=== PATIENT | female | born 2000 | race Two or more races ===

== ENCOUNTER 2025-01-26 08:54 | Inpatient (IN) | payer OTHER ==
[~2025-01-26] VITALS: Ht 157.5 cm; Wt 70.3 kg
[2025-01-26] MEDS: SODIUM CHLORIDE 0.9% 1,000 ML IV ONE ×3 (09:15→13:14)
--- NOTE | 2025-01-26 09:18 | ED.PDOC ---
History of Present Illness HPI Comments 24-year-old female presents with a chief complaint of flu-like symptoms. Patient is presenting with symptoms of fever, cough, nausea, and vomiting. Patient states that her temperature at home was "200" and took Ibuprofen for it. Patient is afebrile in triage. Patient endorses nausea, but has no active vomiting at this time. Patient denies abdominal pain, chest pain, or SOB. 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 Chief Complaint: Flu like Time Seen by MD: 09:09 Reviewed Notes: Medications, Allergies Allergies: Coded Allergies: NO KNOWN ALLERGIES (Unverified , 01/26/25) Information Source: Patient Mode of Arrival: Ambulatory Severity: Moderate Timing: Hours Duration: Since onset Prehospital treatment: None Past Medical History PAST MEDICAL HISTORY: Denies Surgical History: Denies all surgeries DEMAND MANAGER History: Denies all DEMAND MANAGER Hx Family History Family History: Reviewed,noncontributory to illness Social History Smoker: Non-Smoker Alcohol: Denies ETOH Use Drugs: Denies Drug Use Lives In: Home Constitutional: reports: fever; denies: chills, diaphoresis, fatigue, malaise, sweats, weakness, others EENTM: denies: blurred vision, double vision, ear bleeding, ear discharge, ear drainage, ear pain, ear ringing, eye pain, eye redness, hearing loss, mouth pain, mouth swelling, nasal discharge, nose bleeding, nose congestion, nose pain, photophobia, tearing, throat pain, throat swelling, voice changes, others Respiratory: reports: cough; denies: hemoptysis, orthopnea, SOB at rest, shortness of breath, SOB with excertion, stridor, wheezing, others Cardiovascular: denies: chest pain, dizzy spells, diaphoresis, Dyspnea on exertion, edema, irregular heart beat, left arm pain, lightheadedness, palpitations, PND, syncope, others Gastrointestinal: reports: nausea, vomiting; denies: abdomen distended, abdominal pain, blood streaked bowels, constipated, diarrhea, dysphagia, difficulty swallowing, hematemesis, melena, poor appetite, poor fluid intake, rectal bleeding, rectal pain, others Genitourinary: denies: abnormal vagina bleeding, burning, dyspareunia, dysuria, flank pain, frequency, hematuria, incontinence, pain, , vagina discharge, urgency, others Neurological: denies: dizziness, fainting, headache, left sided numbness, left sided weakness, numbness, paresthesia, pre-existing deficit, right sided numbness, right sided weakness, seizure, speech problems, tingling, tremors, weakness, others Musculoskeletal: denies: back pain, gout, joint pain, joint swelling, muscle pain, muscle stiffness, neck pain, others Integumetry: denies: bruises, change in color, change in hair/nails, dryness, laceration, lesions, lumps, rash, wounds, others Allergic/Immunocompromised: denies: Difficulty Healing, Frequent Infections, Hives, Itching, others Hematologic/Lymphatic: denies: anemia, blood clots, easy bleeding, easy bruising, swollen glands, others Endocrine: denies: excessive hunger, excessive sweating, excessive thirst, excessive urination, flushing, intolerance to cold, intolerance to heat, unexplained weight gain, unexplained weight loss, others Psychiatric: denies: anxiety, bipolar disorder, depression, hopeless, panic disorder, schizophrenia, sleepless, suicidal, others All Other Systems: Reviewed and Negative Physical Exam General Appearance: No Apparent Distress, Normal HEENT: Normal ENT Inspection, Pharynx Normal, TMs Normal Neck: Full Range of Motion, Non-Tender, Normal, Normal Inspection Respiratory: Chest Non-Tender, Lungs Clear, No Accessory Muscle Use, No Respiratory Distress, Normal Breath Sounds Cardiovascular: No Edema, No JVD, No Murmur, No Gallop, Normal Peripheral Pulses, Regular Rate/Rhythm Breast Exam: Deferred Gastrointestinal: No Organomegaly, Non Tender, No Pulsatile Mass, Normal Bowel Sounds, Soft Genitalia: Deferred Pelvic: Deferred Rectal: Deferred Extremities: No calf tenderness, Normal capillary refill, Normal inspection, Normal range of motion, Non-tender, No pedal edema Musculoskeletal : Apperance: Normal Neurologic: Alert, natural gas engineer II-XII nml as Tested, No Motor Deficits, Normal Affect, Normal Mood, No Sensory Deficits Cerebellar Function: Normal Reflexes: Normal Skin: Dry, Normal Color, Warm Lymphatic: No Adenopathy Was a procedure done? Was a procedure done?: No EKG EKG : Pulse Rate (adult): 126 [place]: RAD Cardiac Rhythm: ST Block: None Hypertrophy: LAE ST: Normal Differential Dx Considerations may include: Acute cystitis, viral syndrome, dehydration, electrolyte abnormalities X-Ray, Labs, Meds, VS Vital Signs Date Time Temp Pulse Resp B/P (MAP) Pulse Ox O2 Delivery O2 Flow Rate FiO2 01/26/25 12:44 127 14 100/45 (63) 97 01/26/25 10:33 98.8 130 18 112/55 (74) 98 98.8 01/26/25 10:31 98.8 01/26/25 09:56 99.2 01/26/25 09:29 99.2 130 20 103/62 (76) 98 99.2 01/26/25 09:29 130 20 98 Room Air* 0 21 01/26/25 09:18 126 01/26/25 09:12 126 01/26/25 09:00 99.2 143 16 Lab Test 01/26/25 10:31 01/26/25 09:37 01/26/25 09:20 01/26/25 09:05 Range/Units White Blood Count 21.4 H 4.4-10.8 10^3/uL Red Blood Count 4.15 4.0-5.20 10^6/uL Hemoglobin 10.7 L 12.2-16.2 g/dL Hematocrit 33.0 L 36.0-46.0 % Mean Corpuscular Volume 79.5 L 80.0-100.0 fL Mean Corpuscular Hemoglobin 25.8 L 28.0-32.0 pg Mean Corpuscular Hemoglobin Concent 32.5 32.0-36.0 g/dL Red Cell Distribution Width 15.8 H 11.8-14.3 % Platelet Count 336 140-450 10^3/uL Mean Platelet Volume 6.1 L 6.9-10.8 fL Neutrophils (%) (Auto) 82.4 H 37.0-80.0 % Lymphocytes (%) (Auto) 7.0 L 10.0-50.0 % Monocytes (%) (Auto) 10.3 0.0-12.0 % Eosinophils (%) (Auto) 0.0 0.0-7.0 % Basophils (%) (Auto) 0.3 0.0-2.0 % Neutrophils # (Auto) 17.6 H 1.6-8.6 10 ^3/uL Lymphocytes # (Auto) 1.5 0.4-5.4 10 ^3/uL Monocytes # (Auto) 2.2 H 0-1.3 10 ^3/uL Eosinophils # (Auto) 0 0-0.8 10 ^3/uL Basophils # (Auto) 0.1 0-0.2 10 ^3/uL Nucleated Red Blood Cells 0.0 % Sodium Level 134 L 136-145 mmol/L Potassium Level 3.9 3.5-5.1 mmol/L Chloride Level 105 98-107 mmol/L Carbon Dioxide Level 20 20-31 mmol/L Anion Gap 9 5-15 Blood Urea Nitrogen 7 L 9-23 mg/dL Creatinine 0.72 0.550-1.02 mg/dL Glomerular Filtration Rate Calc 121 >90 mL/min BUN/Creatinine Ratio 9.7 L 10.0-20.0 Serum Glucose 126 H 74-106 mg/dL Calcium Level 9.6 8.7-10.4 mg/dL Influenza Type A Antigen Negative Negative Influenza Type B Antigen Negative Negative SARS-CoV-2 Antigen (Rapid) Negative NEGATIVE Urine Color Yellow Yellow Urine Clarity Hazy H Clear Urine pH 6.0 5.0-9.0 Urine Specific [place] 1.027 1.001-1.035 Urine Protein 1+ H Negative Urine Ketones 1+ H Negative Urine Blood 1+ H Negative /uL Urine Nitrite Negative Negative Urine Bilirubin Negative Negative Urine Urobilinogen Normal Negative mg/dL Urine Leukocyte Esterase 1+ Negative /uL Urine RBC 3 0 - 4 /hpf Urine Microscopic WBC 27 H 0-5 /HPF Urine Squamous Epithelial Cells Few <5 /hpf Urine Bacteria Few H None Seen /hpf Urine Mucus Few None Seen Urine Glucose Normal Normal mg/dL Urine Test Negative Negative Current Medications Medications (Trade) Dose Ordered Sig/Robyn Route Start Time Stop Time Status Last Admin Sodium Chloride 1,000 ml @ 1,000 mls/hr Q1H ONCE IV 01/26/25 09:15 01/26/25 10:14 DC 01/26/25 09:15 Ondansetron HCl (Zofran) 4 mg ONCE ONCE IV 01/26/25 09:15 01/26/25 09:16 DC 01/26/25 09:55 Acetaminophen (Tylenol Tablet) 650 mg ONCE ONCE PO 01/26/25 09:15 01/26/25 09:16 DC 01/26/25 09:56 Famotidine (Pepcid Injection) 20 mg ONCE ONCE IV 01/26/25 09:15 01/26/25 09:16 DC 01/26/25 09:55 Sodium Chloride 1,000 ml @ 1,000 mls/hr Q1H ONCE IV 01/26/25 11:30 01/26/25 12:29 DC 01/26/25 11:33 Cefepime HCl 50 ml @ 12.5 mls/hr ONCE ONCE IV 01/26/25 11:30 01/26/25 15:29 01/26/25 11:39 Time of 1ST Reevaluation: 09:39 Reevaluation 1ST: Unchanged Patient Education/Counseling: Diagnosis, Treatment, Prognosis Family Education/Counseling: No Family Present Departure 1 Departure Time of Disposition: 12:53 (Patient with sepsis secondary urinary tract infection. Empirically covering patient with fluids antibiotics we will admit patient for further workup) Impression: Primary Impression: Sepsis Qualified Codes: A41.9 - Sepsis, unspecified organism Additional Impression: Pyelonephritis Disposition: ADMITTED INPATIENT Admit to: Med Surg Condition: Serious Critical Care Note Critical Care Time?: Yes Critical care comment: Sepsis Authorized and Performed by: Isatu Cervantes MD Total critical care time: Approximately 38 minutes Due to a high probability of clinically significant, life threatening deterioration, the patient required my highest level of preparedness to intervene emergently and I personally spent this critical care time directly and personally managing the patient. This critical care time included obtaining a history; examining the patient; pulse oximetry; ordering and review of studies; arranging urgent treatment with development of a management plan; evaluation of patient's response to treatment; frequent reassessment; and, discussions with other providers. This critical care time was performed to assess and manage the high probability of imminent, life-threatening deterioration that could result in multi-organ failure. It was exclusive of separately billable procedures and treating other patients and teaching time. Please see my other sections and the rest of the note for further information on patient assessment and treatment. Stability Stability form required: No I personally scribed for ISATU CERVANTES MD ([email or web address]) on 01/26/25 at 09:18. Electronically submitted by Arvin Zhang ([email or web address]). ISATU CERVANTES MD Jan 26, 2025 09:18
[2025-01-26 09:29] VITALS: PULSE 130; RESP 20; O2SAT 98
[2025-01-26 09:35] LABS: Urine Bacteria FEW /hpf (None Seen); Urine Blood 1+ /uL (Negative); Urine Color Yellow (Yellow); Urine Mucus FEW (None Seen); Urine Protein, UAD 1+ (Negative); Urine Specific Gravity 1.027 (1.001-1.035); Urine Squamous Epithelial Cell FEW /hpf (<5); Urine Urobilinogen Normal (Negative); Urine WBC 27 /HPF (0-5)
[2025-01-26] MEDS: ONDANSETRON HCL 4 MG/2 ML VIAL IV ONE (09:55)
[2025-01-26] MEDS: FAMOTIDINE (10MG/ML) 2ML VL IV ONE (09:55)
[2025-01-26] MEDS: ACETAMINOPHEN 325 MG TAB PO ONE (09:56)
[2025-01-26 09:57] LABS: Chloride 105 mmol/L (98-107); Potassium 3.9 mmol/L (3.5-5.1)
[2025-01-26 09:58] LABS: Anion Gap 9 (5-15)
[2025-01-26 09:58] LABS: Urine Clarity Hazy (Clear)
[2025-01-26 09:59] LABS: Calcium 9.6 mg/dL (8.7-10.4)
[2025-01-26 10:03] LABS: BUN/Creatinine Ratio 9.7 (10.0-20.0)
[2025-01-26 10:03] LABS: Rapid Influenza A Negative (Negative); Rapid Influenza B Negative (Negative)
[2025-01-26 10:04] LABS: COVID19 ANTIGEN SOFIA FIA NEGATIVE (NEGATIVE)
[2025-01-26 10:31] LABS: Blood Urea Nitrogen 7 mg/dL (9-23); Carbon Dioxide 20 mmol/L (20-31); Glucose 126 mg/dL (74-106); Sodium 134 mmol/L (136-145)
[2025-01-26 10:40] LABS: Eosinophils # (auto) 0 10 ^3/uL (0-0.8); Monocytes # (auto) 2.2 10 ^3/uL (0-1.3); Monocytes % (auto) 10.3 % (0.0-12.0); White Blood Cell 21.4 10^3/uL (4.4-10.8)
[2025-01-26 10:42] LABS: Basophils # (auto) 0.1 10 ^3/uL (0-0.2); Basophils % (auto) 0.3 % (0.0-2.0); Hemoglobin 10.7 g/dL (12.2-16.2); Lymphocytes # (auto) 1.5 10 ^3/uL (0.4-5.4); Mean Corpuscular Hemoglobin 25.8 pg (28.0-32.0); Mean Corpuscular Hgb Conc. 32.5 g/dL (32.0-36.0); Mean Corpuscular Volume 79.5 fL (80.0-100.0); Neutrophils # (auto) 17.6 10 ^3/uL (1.6-8.6); Neutrophils % (auto) 82.4 % (37.0-80.0); Platelet Count (auto) 336 10^3/uL (140-450); Red Blood Cells 4.15 10^6/uL (4.0-5.20); Red Cell Distribution Width 15.8 % (11.8-14.3)
[2025-01-26] MEDS: CEFEPIME 2GM/50ML NS 50 ML IV ONE (11:39)
--- NOTE | 2025-01-26 12:19 | DVH ---
EXAM: XY CHEST PORTABLE HISTORY: fever COMPARISON: None TECHNIQUE: Portable AP view of the chest was performed. FINDINGS: No pneumothorax, consolidative infiltrates, or pulmonary edema. There is central peribronch ial thickening, greater on the left. The heart is not enlarged. IMPRESSION: Reactive airways disease. The lungs are otherwise clear.
[2025-01-26] MEDS ORDERED: HYDROcodone-ACET 5/325MG TAB PO PRN (15:30)
[2025-01-26] MEDS ORDERED: ONDANSETRON HCL 4 MG/2 ML VIAL IV PRN (15:30)
[2025-01-26] MEDS ORDERED: DOCUSATE SOD 100 MG CAP PO PRN (15:30)
--- NOTE | 2025-01-26 15:45 | DVHHP2 ---
History of Present Illness Reason for Visit: Fever History of Present Illness Lisa Rubio is a 24-year-old female with no significant past medical history, who came to the hospital due to fevers. Patient states she has been experiencing intermittent fevers with associated chills, diaphoresis, cough, nausea, and vomiting for about 3 days. While in the ER patient is tachycardic, has a fever, and leukocytosis. Patient denies being diabetic. Blood glucose is elevated on admission, will check an A1c. Past Surgical History: None Smoke: No ALCOHOL: none Drugs: None Lives: with Family Domestic Violence: Neg Review of Systems Constitutional: Yes: Fever, Chills, Sweats, Malaise; No: Weakness, Other Eyes: No: Pain, Vision change, Conjunctivae inflammation, Eyelid inflammation, Other, Redness ENT: No: Ear pain, Ear discharge, Nose pain, Nose discharge, Nose congestion, Mouth pain, Mouth swelling, Throat pain, Throat swelling, Other Respiratory: Cough; No: Dry, Shortness of breath, SOB with excertion, Wheezing, Hemoptysis, Pleuritic Pain, Sputum, Wheezing, Other Cardiovascular: No: Chest Pain, Palpitations, Orthopnea, Paroxysmal Noc. Dyspnea, Edema, Lt Headedness, Other Gastrointestinal: No: Nausea, Vomiting, Abdominal Pain, Diarrhea, Constipation, Melena, Hematochezia, Other Genitourinary: No Dysuria, No Frequency, No Incontinence, No Hematuria, No Retention, No Other Musculoskeletal: No: other, neck pain, shoulder pain, arm pain, back pain, hand pain, leg pain, foot pain Skin: No: Rash, Lesions, Jaundice, Bruising, Other Neurological: No: Weakness, Numbness, Incoordination, Change in speech, Confusion, Seizures, Other Allergies: Coded Allergies: NO KNOWN ALLERGIES (Unverified , 01/26/25) Medications Current Medications Medications Dose Ordered Sig/Robyn Route Start Time Stop Time Status Last Admin Dose Admin Acetaminophen/ Hydrocodone Bitart 1 tab Q4HP PRN PO 01/26/25 15:30 UNV Ondansetron HCl 4 mg Q4HP PRN IV 01/26/25 15:30 UNV Docusate Sodium 100 mg BIDPRN PRN PO 01/26/25 15:30 UNV Acetaminophen 650 mg Q6HP PRN PO 01/26/25 15:30 UNV Exam Vital Signs Vital Signs Date Time Temp Pulse Resp B/P (MAP) Pulse Ox O2 Delivery O2 Flow Rate FiO2 01/26/25 14:00 98.8 122 20 102/50 (67) 98 98.8 01/26/25 09:29 Room Air* 0 21 General Appearance: Alert, Oriented X3 HEENT: Atraumatic, PERRLA Respiratory: Clear to auscultation, Normal air movement Cardiovascular: Normal S1, Normal S2, Other (tachycardia) Abdominal: Normal bowel sounds, Soft, No tenderness, No hepatospenomegaly Extremities: No clubbing, No cyanosis, No edema, Normal pulses, No tenderness/swelling Skin: No rashes, No breakdown, No significant lesion Neuro: Normal gait, Normal speech, Strength at 5/5 X4 ext, Normal tone Psych/Mental Status: Mental status NL, Mood NL Labs/Xrays Labs Test 01/26/25 12:45 01/26/25 10:31 01/26/25 09:37 01/26/25 09:20 Range/Units Lactic Acid Level 1.2 0.4-2.0 mmol/L White Blood Count 21.4 H 4.4-10.8 10^3/uL Red Blood Count 4.15 4.0-5.20 10^6/uL Hemoglobin 10.7 L 12.2-16.2 g/dL Hematocrit 33.0 L 36.0-46.0 % Mean Corpuscular Volume 79.5 L 80.0-100.0 fL Mean Corpuscular Hemoglobin 25.8 L 28.0-32.0 pg Mean Corpuscular Hemoglobin Concent 32.5 32.0-36.0 g/dL Red Cell Distribution Width 15.8 H 11.8-14.3 % Platelet Count 336 140-450 10^3/uL Mean Platelet Volume 6.1 L 6.9-10.8 fL Neutrophils (%) (Auto) 82.4 H 37.0-80.0 % Lymphocytes (%) (Auto) 7.0 L 10.0-50.0 % Monocytes (%) (Auto) 10.3 0.0-12.0 % Eosinophils (%) (Auto) 0.0 0.0-7.0 % Basophils (%) (Auto) 0.3 0.0-2.0 % Neutrophils # (Auto) 17.6 H 1.6-8.6 10 ^3/uL Lymphocytes # (Auto) 1.5 0.4-5.4 10 ^3/uL Monocytes # (Auto) 2.2 H 0-1.3 10 ^3/uL Eosinophils # (Auto) 0 0-0.8 10 ^3/uL Basophils # (Auto) 0.1 0-0.2 10 ^3/uL Nucleated Red Blood Cells 0.0 % Sodium Level 134 L 136-145 mmol/L Potassium Level 3.9 3.5-5.1 mmol/L Chloride Level 105 98-107 mmol/L Carbon Dioxide Level 20 20-31 mmol/L Anion Gap 9 5-15 Blood Urea Nitrogen 7 L 9-23 mg/dL Creatinine 0.72 0.550-1.02 mg/dL Glomerular Filtration Rate Calc 121 >90 mL/min BUN/Creatinine Ratio 9.7 L 10.0-20.0 Serum Glucose 126 H 74-106 mg/dL Calcium Level 9.6 8.7-10.4 mg/dL Influenza Type A Antigen Negative Negative Influenza Type B Antigen Negative Negative SARS-CoV-2 Antigen (Rapid) Negative NEGATIVE Test 01/26/25 09:05 Range/Units Urine Color Yellow Yellow Urine Clarity Hazy H Clear Urine pH 6.0 5.0-9.0 Urine Specific [place] 1.027 1.001-1.035 Urine Protein 1+ H Negative Urine Ketones 1+ H Negative Urine Blood 1+ H Negative /uL Urine Nitrite Negative Negative Urine Bilirubin Negative Negative Urine Urobilinogen Normal Negative mg/dL Urine Leukocyte Esterase 1+ Negative /uL Urine RBC 3 0 - 4 /hpf Urine Microscopic WBC 27 H 0-5 /HPF Urine Squamous Epithelial Cells Few <5 /hpf Urine Bacteria Few H None Seen /hpf Urine Mucus Few None Seen Urine Glucose Normal Normal mg/dL Urine Test Negative Negative EXAM: XY CHEST PORTABLE TECHNIQUE: Portable AP view of the chest was performed. FINDINGS: No pneumothorax, consolidative infiltrates, or pulmonary edema. There is central peribronchial thickening, greater on the left. The heart is not enla rged. IMPRESSION: Reactive airways disease. The lungs are otherwise clear. Assessment/Plan Assessment/Plan Assessment: Sepsis, UTI, Hyponatremia, Leukocytosis, Possible pneumonia, Possible pyelonephritis, Plan: Admit to Tele, IV antibiotics, IV hydration, Blood culture, Urine culture, A1c, Plan discussed with: Patient My Orders Orders - WILLIAM VIVAS Procedure Category Date Status Time Admit ADMIT 01/26/25 Transmitted 15:26 Code Status CODE 01/26/25 Transmitted 15:26 Hydrocodone-Acet PHA 01/26/25 Logged 5/325mg Tab ([place] 15:30 Ondansetron Hcl PHA 01/26/25 Logged (Zofran) 15:30 Docusate Sodium PHA 01/26/25 Logged Capsule ([place] 15:30 Complete Blood Count LAB 01/27/25 Verified 04:00 Comprehensive LAB 01/27/25 Verified Metabolic Panel 04:00 Condition: Serious RAMA 01/26/25 In Process 15:26 Acetaminophen Tablet PHA 01/26/25 Logged (Tylenol Tablet) 15:30 Regular Diet DIET 01/26/25 Transmitted Dinner Urine Bacterial JAVI 01/26/25 Logged Culture 15:26 Date of Service: Jan 26, 2025 Billing Provider: WILLIAM VIVAS Common Visit Codes: [id number] INP/OBS CARE (MOD) WILLIAM VIVAS Jan 26, 2025 15:45
[2025-01-26] MEDS: ACETAMINOPHEN 325 MG TAB PO PRN (17:12)
[2025-01-26 17:15] VITALS: BP 141/121; PULSE 148; RESP 20; TEMP 101.6; O2SAT 98
[2025-01-26 17:25] VITALS: PULSE 148; RESP 20; O2SAT 98
[2025-01-26 17:30] VITALS: BP 102/45; PULSE 146; RESP 20; TEMP 100; O2SAT 98
[2025-01-26] MEDS: SODIUM CHLORIDE 0.9% 1,000 ML IV SCH (17:39)
[2025-01-26 19:52] VITALS: BP 101/56; PULSE 140
[2025-01-26] MEDS: SODIUM CHLORIDE 0.9% 500 ML IV ONE (20:49)
[2025-01-26] MEDS ORDERED: CEFEPIME 1GM/ 50ML 50 ML IV SCH (22:00)
[2025-01-26] MEDS ORDERED: CEFEPIME 2GM/50ML NS 50 ML IV SCH (22:00)
--- NOTE | 2025-01-28 15:15 | ECG ---
[facility] Test Date: 2025-01-26 Test Time: 09:12:37 Pat Name: JIMY GALEANODepartment: ER Room: [address] [place] [address] Gender: F Director Medicaid: [place] : 2000 Requested By: ISATU BENITES Order Number: [id number] Reading MD: Measurements Intervals [place] Rate: 126 P: 59 [place]: 124 QRS: 90 QRSD: 81 T: 50 QT: 296 QTc: 429 Interpretive Statements Sinus tachycardia Probable left atrial enlargement Borderline right axis deviation Please click the below link to view image of tracing.
== END 2025-01-26 21:30 | disposition left against medical advice (07) | DRG 720 ==
LOC: EDBD 08:54 → ER 08:54 → OVERFLOW 15:26
PROVIDERS: ADMIT Nurse Practitioner Family; ATTEND Nurse Practitioner Family
DX: A41.9 Sepsis, unspecified organism (principal); E87.1 Hypo-osmolality and hyponatremia; Z20.822 Contact with and (suspected) exposure to COVID-19; Z53.29 Procedure and treatment not carried out because of patient's decision for other reasons; N12 Tubulo-interstitial nephritis, not specified as acute or chronic; Z79.899 Other long term (current) drug therapy
CPT/HCPCS: 36415; 71045; 80048; 81001; 81025; 83036; 83605; 85025; 87040; 87086; 87088; 87186; 87426; 87804; 93005; 96365; 96375; 99291; G0378; J0692; J2405; J3490